=== PATIENT | female | born 1960 | race Caucasian/White ===

== ENCOUNTER 2016-11-03 15:43 | Outpatient (CLI) | payer OTHER ==
--- NOTE | 2016-11-03 16:49 | DIAGNOSTIC IMAGING REPORT ---
PROCEDURE: US COMPLETE PELVIC W/TRANSVAG INDICATION: Follow-up endometrial thickening and polyps. 1 year status post TECHNIQUE: Transabdominal and endovaginal cole scale and color Doppler sonographic images of the female pelvis were obtained. COMPARISON: Comparison is made to pelvic ultrasound 07/12/2015. FINDINGS: Study is partially limited due to body habitus and retroverted uterus TRANSABDOMINAL SCANS: The uterus is of normal size (6.3 x 6.0 x 4.6 cm) , although retroverted (normal variant). Findings suggest mild fibroid changes of the uterine fundus. Kidneys are normal. TRANSVAGINAL SCANS: This is a mild increase endometrial thickening (7 mm) assess with dystrophic calcifications. No definite polypoid lesions are identified. Right ovary is not visualized. Left ovary is mildly atrophic (2.6 cm) with normal vascularity. IMPRESSION: 1. Retroverted uterus (normal variant). 2. Findings suggest mild fibroid changes of the uterine fundus. 3. There is persistent mild increased endometrial thickening (7 mm), although this may be normal if the patient is on hormones. Clinical correlation is needed in regards is. 4. No evidence of endometrial polyp.
== END 2016-11-03 23:00 ==
LOC: US SRH 15:43
DX: R93.8 Abnormal findings on diagnostic imaging of other specified body structures (principal); N85.4 Malposition of uterus